=== PATIENT | female | born 1995 | race African-American/Black ===

== ENCOUNTER 2022-07-01 13:24 | Emergency (ER) | payer OTHER ==
[~2022-07-01] VITALS: Ht 170.2 cm; Wt 64.0 kg
[2022-07-01] MEDS ORDERED: LORAZEPAM 0.5MG TABLET PO ONE (14:30)
[2022-07-01] MEDS ORDERED: SODIUM CHLORIDE 0.9% 1,000 ML IV ONE (14:30)
[2022-07-01] MEDS ORDERED: ASPIRIN 81MG TABLET PO ONE (14:30)
[2022-07-01 14:50] LABS: CHLORIDE 106 mEq/L (98-107)
[2022-07-01 14:51] LABS: HEMATOCRIT. 30.7 % (36.0-48.0); MEAN CORPUSCULAR HEMOGLOBIN 23.5 pg (28.0-32.0); MEAN CORPUSCULAR VOLUME 72.2 fL (81.0-99.0); MEAN PLATELET VOLUME 9.8 fl (7.4-10.4); PLATELET 163 x1000/uL (130-400); RED BLOOD CELL COUNT 4.26 mill/uL (4.2-5.4); RED CELL DISTRIBUTION WIDTH 18.5 % (11.6-14.6)
[2022-07-01] MEDS ORDERED: LORAZEPAM 2MG/ML CPJ IV ONE (16:15)
[2022-07-01] MEDS ORDERED: LORAZEPAM 0.5MG TABLET PO NR (16:15)
[2022-07-01 16:37] LABS: HCG SCREEN NEGATIVE
[2022-07-01 16:56] LABS: PLATELET ESTIMATE NORMAL
[2022-07-01 17:16] VITALS: BP 110/76
[2022-07-01] MEDS ORDERED: IOHEXOL-350 100 ML BOTTLE ONE ×2 (18:13→23:03)
== END 2022-07-01 19:08 | disposition home or self-care (01) ==
LOC: ER 13:24
DX: R07.89 Other chest pain (principal); F41.9 Anxiety disorder, unspecified
CPT/HCPCS: 36415; 71045; 71275; 80053; 84484; 84703; 85025; 85379; 93005; 99285; J7030; Q9967; Z7610